=== PATIENT | male | born 1990 | race Caucasian/White ===

== ENCOUNTER 2019-01-28 15:47 | Emergency (ER) | payer SELFPAY ==
[~2019-01-28] VITALS: Ht 172.7 cm; Wt 168.7 kg
[2019-01-28 15:57] VITALS: BP 152/91
--- NOTE | 2019-01-28 18:54 | NUR ---
PATIENT AMBULATED TO ER BED 10
--- NOTE | 2019-01-28 19:00 | NUR ---
PATIENT PRESENTS TO ED WITH C/O SOB OFF AND ON X 2 MONTHS. PT DENIES PAIN AT THIS TIME. PT DENIES N/V/D; SKIN IS PINK/WARM/DRY; AAOX4 WITH EVEN AND STEADY GAIT; LUNGS CLEAR BL; HR EVEN AND REGULAR; PATIENT STATES PAIN OF 0/10 AT THIS TIME; PATIENT POSITIONED FOR COMFORT; HOB ELEVATED; BEDRAILS UP X2; BED DOWN. ER MD MADE AWARE OF PT STATUS.
--- NOTE | 2019-01-28 19:18 | NUR ---
Dr. Guillen evaluating patient at bedside.
[2019-01-28 20:20] VITALS: BP 152/91
== END 2019-01-28 19:56 | disposition home or self-care (01) ==
LOC: MED 15:47
DX: R06.02 Shortness of breath (principal); R42 Dizziness and giddiness; F17.210 Nicotine dependence, cigarettes, uncomplicated; F41.9 Anxiety disorder, unspecified
CPT/HCPCS: 99283

== ENCOUNTER 2023-08-23 00:45 | Emergency (ER) | payer MEDICAID ==
[~2023-08-23] VITALS: Ht 170.2 cm; Wt 122.5 kg
[2023-08-23 01:25] VITALS: BP 166/84; PULSE 88; RESP 17; TEMP 98.3; O2SAT 85
[2023-08-23 01:53] LABS: FLU A ANTIGEN negative (NEGATIVE); FLU B ANTIGEN NEGATIVE (NEGATIVE)
[2023-08-23] MEDS ORDERED: KETOROLAC 60 MG/2 ML VIAL IM ONE (03:35)
[2023-08-23] MEDS ORDERED: PENICILLIN G BENZATHINE L-A 1.2 MU/2 ML SYR IM ONE (03:35)
[2023-08-23] MEDS ORDERED: IBUP-2213 PO (03:53)
[2023-08-23] MEDS ORDERED: PRED20TA5 PO (03:53)
== END 2023-08-23 04:06 | disposition home or self-care (01) ==
LOC: MED 00:45
DX: J02.0 Streptococcal pharyngitis (principal); Z20.822 Contact with and (suspected) exposure to COVID-19; Z79.899 Other long term (current) drug therapy
CPT/HCPCS: 87426; 87804; 96372; 99284; J0561; J1885

== ENCOUNTER 2023-09-01 09:31 | Emergency (ER) | payer MEDICAID ==
[~2023-09-01] VITALS: Ht 172.7 cm; Wt 169.2 kg
[~2023-09-01 09:31] MED LIST: IBUP-2213 PO; PRED20TA5 PO
[2023-09-01 09:38] VITALS: BP 152/97; PULSE 94; RESP 18; TEMP 98.4; O2SAT 97
[2023-09-01] MEDS ORDERED: KETOROLAC 30 MG/ML VIAL IVP ONE (10:25)
[2023-09-01] MEDS ORDERED: DEXAMETHASONE 10 MG/ML VIAL IVP ONE (10:25)
[2023-09-01] MEDS ORDERED: KETOROLAC 60 MG/2 ML VIAL IM ONE (10:34)
[2023-09-01 10:52] LABS: BASOPHILS # (AUTO) 0.1 K/uL (0.00-0.22); BASOPHILS % (AUTO) 0.7 % (0.0-2.0); EOSINOPHILS # (AUTO) 0.1 K/uL (0-0.4); EOSINOPHILS % (AUTO) 1.1 % (0.0-4.0); HEMATOCRIT 43.3 % (36-52); HEMOGLOBIN 14.6 g/dL (12.0-18.0); LYMPHOCYTES % (AUTO) 23.9 % (20.5-51.1); MEAN CORPUSCULAR HEMOGLOBIN 30 pg (27-31); MEAN CORPUSCULAR HGB CONC 34 g/dL (33-37); MEAN CORPUSCULAR VOLUME 88.6 fL (80-94); MONOCYTES # (AUTO) 1.2 K/uL (0.8-1.0); MONOCYTES % (AUTO) 9.4 % (1.7-9.3); NEUTROPHILS % (AUTO) 64.9 % (42.2-75.2); PLATELET COUNT (AUTO) 391 K/uL (140-450); RED BLOOD CELL COUNT(AUTO) 4.89 MIL/uL (4.20-6.10); RED CELL DISTRIBUTION WIDTH 12.7 % (11.6-13.7); WHITE BLOOD COUNT (AUTO) 12.3 K/uL (4.8-10.8)
[2023-09-01 11:18] LABS: ALBUMIN 3.8 g/dL (3.4-5.0); ANION GAP 12.3 (8-16); CALCIUM 9.4 mg/dL (8.5-10.1); CARBON DIOXIDE 27.9 mmol/L (21-32); CREATININE 0.9 mg/dL (0.6-1.3); POTASSIUM 4.2 mmol/L (3.5-5.1); TOTAL BILIRUBIN 0.5 mg/dL (0.0-1.0); TOTAL PROTEIN, SERUM 8.2 g/dL (6.4-8.2)
[2023-09-01] MEDS ORDERED: AMPICILLIN/SULBACTAM 3 GM in NACL 0.9% 100 ML IV ONE (12:55)
[2023-09-01] MEDS ORDERED: LIDOCAINE 2% 100 MG/5 ML UJET TP ONE (13:10)
[2023-09-01] MEDS ORDERED: BENZOCAINE 20% 57 GM CAN MC ONE ×2 (13:15)
[2023-09-01] MEDS ORDERED: AMPICILLIN/SULBACTAM 3 GM VIAL ONE (13:19)
[2023-09-01] MEDS ORDERED: IBUP-2213 PO (13:33)
[2023-09-01] MEDS ORDERED: AMOX-1230 PO ×2 (13:33→15:31)
[2023-09-01 14:37] VITALS: BP 162/92; PULSE 85; RESP 17; TEMP 97.9; O2SAT 96
== END 2023-09-01 14:37 | disposition home or self-care (01) ==
LOC: MED 09:31
DX: J36 Peritonsillar abscess (principal); B96.89 Other specified bacterial agents as the cause of diseases classified elsewhere; Z79.899 Other long term (current) drug therapy
CPT/HCPCS: 36415; 42700; 70487; 80053; 85025; 96365; 96375; 99285; J0295; J1100; J1885; Q9967